=== PATIENT | male | born 1990 | race Caucasian/White ===

== ENCOUNTER 2021-08-22 18:15 | Emergency (ER) | payer BC ==
[~2021-08-22] VITALS: Ht 172.7 cm; Wt 73.0 kg
[2021-08-22 18:22] VITALS: BP 133/97
== END 2021-08-22 23:54 | disposition left against medical advice (07) ==
LOC: ER 18:15
DX: Z53.21 Procedure and treatment not carried out due to patient leaving prior to being seen by health care provider (principal)
CPT/HCPCS: 93005